=== PATIENT | male | born 1935 | race Caucasian/White ===

== ENCOUNTER 2017-03-10 21:23 | Observation (INO) | payer MEDICARE, OTHER ==
[~2017-03-10] VITALS: Ht 181.6 cm; Wt 70.3 kg
[~2017-03-10 21:23] MED LIST: ALPH600C3 PO; ASCO100089 PO; ASPI-973 PO; ATRV10T PO; CHOL500011 PO; CLOP75TA28 PO; KLO5T PO; NORT10CA PO; OMEG500C3 PO; RABE20TA27 PO; RANI300T4 PO; TERA10CA5 PO
--- NOTE | 2017-03-10 21:53 | ED.REPORT ---
HPI-Stroke / CVA Mar 10, 2017 ED Provider: Gustavo Humphreys MD Pt is a 81 year old male with a history of chronic idiopathic neuropathy and pacemaker insertion who presents to the ED complaining of numbness onset 20:10. The numbness lasted 15 minutes, and the pt reports that he is now asymptomatic. He denies speech-related symptoms, facial drooping, and numbness in his legs. The pt reports that he initially felt numbness on the left side of his face, which radiated to his left hand and forearm. He denies taking blood thinners. Nursing Notes Stated Complaint: NUMBNESS IN FACE/ARM Chief Complaint: Numbness Nursing Notes Reviewed: Yes ([place], ideasoft not reconciled) Allergies: Coded Allergies: Sulfa (Sulfonamide Antibiotics) (Verified Adverse Reaction, Intermediate, 08/15/15) Irritable Scheduled Ascorbic Acid (Vitamin C) 1,000 Mg Tab.chew 1,000 MG PO DAILY (Reported) Aspirin (Aspirin) 81 Mg Tablet 81 MG PO DAILY (Reported) Atorvastatin (Lipitor) 10 Mg Tab 10 MG PO DAILY (Reported) Clopidogrel (Clopidogrel) 75 Mg Tablet 75 MG PO DAILY (Reported) Nortriptyline (Nortriptyline) 10 Mg Capsule 10 MG PO HS (Reported) Ranitidine (Ranitidine) 300 Mg Tablet 300 MG PO DAILY (Reported) Terazosin (Terazosin) 10 Mg Capsule 10 MG PO HS (Reported) Scheduled PRN Clonazepam (Clonazepam) 0.5 Mg Tab 0 PO BID PRN PRN For Anxiety (Reported) Miscellaneous Medications Alpha Lipoic Acid (Alpha Lipoic Acid) 600 Mg Capsule 600 MG PO (Reported) Cholecalciferol (Vitamin D3) (Vitamin D3) 5,000 Unit Tablet 5,000 UNIT PO ( Reported) [place]-3 Fatty Acids (Fish Oil) 500 Mg Capsule 500 MG PO (Reported) Rabeprazole DR (Rabeprazole DR) 20 Mg Tablet.dr 0 PO (Reported) General Time Seen by Provider: 21:23 Chief Complaint Numbness Hx Obtained From: Patient, EMS Arrived By: Ambulance Time last known well 20:00 Sudden in Onset?: Yes Symptom Duration: 1 - 15 minutes (15 min) Progression Since Onset: Rapidly improving Severity: Current: No pain currently Severity: Maximum: No pain Recent Healthcare: No recent doctor visit, No recent hospitalization Similar Sx Previous: No Risk Factors NIH Stroke Scale Level of Consciousness: Alert and responsive (0) Ask Month & Age: Both questions right (0) Open/Close Eyes/Hand Finance Mgr: Performs both tasks (0) Horizontal EO Movements: None (0) Visual Cano: No visual loss (0) Facial Palsy: Normal symmetry (0) Right Arm Motor Drift (10s): No drift 10 sec (0) Left Arm Motor Drift (10s): No drift 10 sec (0) Right Leg Motor Drift (5s): No drift 5 sec (0) Left Leg Motor Drift (5s): No drift 5 sec (0) (Chronic neuropathy and both feet are in braces) Limb Ataxia FNF/Heel-Araujo: No ataxia (0) Sensation (Arms/Legs/Face): No sensory loss (0) Language Aphasia: No aphasia, normal (0) Dysarthria: No dysarthria, normal (0) Extinction/Inattention: No exctinct/inattent (0) NIHSS Score: 0 Time NIHSS Performed: 21:33 Date NIHSS Performed: Mar 10, 2017 Past Medical History Past Medical History Chronic idiopathic neuropathy Sleep apnea Past Surgical History Pacemaker for bradycardia Family History Denies history of stroke Smoking History Never Smoker Social History Alcohol Use: "Social" Drug Use: Denies drug use Other Social History: Review of Systems Neurologic: Reports: Numbness, Denies: Focal weakness, Slurred speech, Unable to speak Complete sys rev & neg: except as marked. Physical Exam Initial Vital Signs Vital Signs (First) Date Time Temp Pulse Resp B/P Pulse Ox O2 Delivery O2 Flow Rate FiO2 03/10/17 21:59 36.7 69 18 140/64 98 Room Air Initial VS: Reviewed, Unavailable (none on chart, ordered) Abdomen / GI: Soft Extremities: Vascular intact, Neuro intact Skin: Warm, Dry, No cyanosis Psychiatric: Mood/affect normal, Behavior normal General/Constitutional: Awake, Alert, Cooperative Head / Eyes: Atraumatic, Normocephalic Neck: Atraumatic, Full range of motion Respiratory / Chest: Atraumatic, Breath sounds NL, Breath sounds = bilat Cardiovascular: Heart rate NL, Regular rhythm, Heart sounds NL Neurologic: Oriented X3, Speech NL, No motor deficits, No sensory deficits Chronic neuropathy and both feet are in braces. Interpretation & Diagnostics Lab Results Interpretation Result Diagram: 03/10/17215403/10/172154 Test 03/10/17 21:55 White Blood Count 6.8th/mm3 (3.8-10.1) Red Blood Count 5.42mil/mm3 (4.40-5.80) Hemoglobin 15.3g/dL (13.8-17.2) Hematocrit 44.8% (41.0-50.0) Mean Corpuscular Volume 82.7fL (81-100) Mean Corpuscular Hemoglobin 28.2pg (27.0-35.0) Mean Corpuscular Hemoglobin Concent 34.2% (32.0-37.0) Red Cell Distribution Width 13.3% (12.3-15.4) Platelet Count 196bil/L (150-400) Neutrophils (%) (Auto) 45.6% (40-74) Lymphocytes (%) (Auto) 42.1% (14-46) Monocytes (%) (Auto) 8.8% (4-12) Eosinophils (%) (Auto) 2.8% (0-5) Basophils (%) (Auto) 0.6% (0-3) Sodium Level 135mEq/L (134-144) Potassium Level 4.0mEq/L (3.5-5.2) Chloride Level 97mEq/L (97-108) Carbon Dioxide Level 23mmol/L (18-29) Blood Urea Nitrogen 16mg/dL (8-27) Creatinine 1.05mg/dL (0.76-1.27) Estimat Glomerular Filtration Rate 72mL/min (>59) Glucose Level 107mg/dL (60-99) Calcium Level 9.7mg/dL (8.5-10.1) Total Bilirubin 0.3mg/dL (0.0-1.2) Aspartate Amino Transf (AST/SGOT) 29U/L (0-50) Alanine Aminotransferase (ALT/SGPT) 27U/L (0-44) Alkaline Phosphatase 59U/L (25-160) Total Protein 6.7g/dL (6.4-8.4) Albumin 4.2g/dL (3.4-5.0) Hold Whitten Top Tube Received (Received) Lab Results Interpretation: CBC normal CMP normal ECG Interpretation ECG Interpretation: Atrial-ventricular dual-paced complexes Time: 20:26 Interpreted by: ED physician X-Ray Chest Interpretation Chest Xray Interpretation: IMPRESSION: 1. No acute cardiopulmonary disease. Dictated by: Ned Culver M.D. on 03/10/2017 at 22:06 View: Portable, 1 view Interpretation / Wet Read by: Interpret - Radiologist CT Head Interpretation Radiologist called and indicated that the study was negative. Interpretation / Wet Read by: Interpret - Radiologist, Discussed w radiologist Re-Eval/Medical Decision Med Decision/Clinical Course This is a 81-year-old male with a pacemaker who presents to sense with TIA symptoms of approximately 15-20 minutes a left facial numbness and left arm numbness that subsequently resolved. Lower extremity neuropathy, but has no additional complaints. He has no prior history of stroke or TIA. He is not on aspirin or anticoagulants. Nonsmoker. No major risk factors. Present as a code stroke, but his NIH stroke scale is 0. Noncontrast CT is negative. He is in a paced rhythm. Labs are normal. I do not appreciate carotid bruits. Given his symptoms have resolved entirely and presents today, is able to eat. He was started on aspirin. He does not have a PCP. At this stage I do think the patient merits admission for TIA workup, with carotid ultrasound and echocardiogram given his pacemaker status. Source of Hx: Old records Re-Evaluation/Progress : Time of Eval: 22:34 )( Re-Eval Neurologic Exam: Alert, Oriented X3 Re-Evaluation/Progress Note: Pt rechecked. Informed pt of results and plan for admission. Pt understands and agrees with plan for admission. All questions were addressed. Consultation #1: Referral / Consult Name: Roseline Boo MD Consulted With: Hospitalist Call Returned at: 23:23 Second Watch Sergeant: Will see patient, Agrees with eval, Agrees with plan, Accepts admit Consultation #2: Call Returned at: 21:30 Note: Consult with radiologist. Discussed CT scan results. Consultation #3: Call Returned at: 23:31 Note: Consult with radiologist. Inquired about CT scan print out, but it could not be located. Differential Diagnosis: Positive: Transient ischemic attack, Negative: Atrial fibrillation, Cerebellar hemorrhage, Electrolyte disorder, Hepatic encephalopathy, Intoxication, alcohol, Intoxication, other drug, Post- ictal, Psychiatric illness, Sepsis, Subarachnoid hemorrhage, Subdural hemorrhage Counseled Regarding: Diagnosis, Lab results, Need for admission Patient Discharge & Departure Impression: Primary Impression: Transient ischemic attack Transient cerebral ischemia type: unspecified Qualified Code: G45.9 - Transient cerebral ischemic attack, unspecified Disposition: ADMITTED TO HOSPITAL Discharge Condition All VS Reviewed: Yes Condition: Stable Referrals: [facility] Scribe Attestation Portions of this note were transcribed by Chayito Carbajal. I, Dr. Humphreys personally performed the history, physical exam and medical decision-making; I reviewed and confirmed the accuracy of the information in the transcribed note. Signed by: Juma Escalera, 03/10/17 and 23:50. copies to: [facility] Gustavo Humphreys MD Mar 10, 2017 21:53 Chayito Knott Mar 10, 2017 22:00
[2017-03-10 21:59] VITALS: BP 140/64; PULSE 69; RESP 18; O2SAT 98
[2017-03-10 22:06] LABS: Platelet Count 196 bil/L (150-400)
[2017-03-10 22:09] LABS: BASOPHILS % (AUTO) 0.6 % (0-3); EOSINOPHILS % (AUTO) 2.8 % (0-5); MONOCYTES % (AUTO) 8.8 % (4-12); Mean Corpuscular Hemoglobin 28.2 pg (27.0-35.0); Mean Corpuscular Volume 82.7 fL (81-100); NEUTROPHILS % (AUTO) 45.6 % (40-74)
--- NOTE | 2017-03-10 22:10 | DRSVH ---
PROCEDURE: X-RAY CHEST ONE VIEW, PORTABLE ([id number]) INDICATIONS: CVA TECHNIQUE: One view of the chest was acquired. COMPARISON: [facility], , CHEST 1VW (PORTABLE), 05/11/2013, 8:03. FINDINGS: Surgical changes and devices: Left chest wall pacemaker appears stable in position. Lungs and pleura: No pleural effusions or pneumothorax. Visualized lungs are clear. Mediastinum: Mediastinal contours appear normal. Heart size is normal. Bones and chest wall: No suspicious bony lesions. Overlying soft tissues appear unremarkable. IMPRESSION: 1. No acute cardiopulmonary disease. Dictated by: Ned Culver M.D. on 03/10/2017 at 22:06 Approved by: Ned Culver M.D. on 03/10/2017 at 22:08
[2017-03-10] MEDS ORDERED: Alum-Mag Hydrox-Simeth 30 mL Suspension PO PRN ×2 (23:30→23:45)
[2017-03-10] MEDS ORDERED: Ondansetron 2 mg/mL 2 mL Inj IVPUSH PRN ×2 (23:30→23:45)
[2017-03-10] MEDS ORDERED: Polyethylene Glycol (PEG) 17 Gm Powder PO PRN (23:45)
--- NOTE | 2017-03-10 23:58 | PCM.HPMED ---
Subjective Date of Service Mar 10, 2017 Primary Provider: Admitting Physician: Primary Care Physician: Yao Attending Physician: Admit Status: From the Emergency Department, 23-Hour Observation, Remote Telemetry Chief Complaint: Left face and arm numbness History of Present Illness: This 81-year-old male who is a history of chronic idiopathic neuropathy and a pacemaker placed a few years ago for bradycardia. He noted acute onset about 7 PM of left facial numbness and then left hand and forearm numbness lasted total of 15 minutes. He has had no prior episodes similar to this he has had no history of TIAs or strokes. He does not take aspirin. His evaluation in the emergency room had a CT of head without contrast which did not show any acute abnormalities per ER M.D. EKG showed atrial ventricular dual paced complexes at a rate of 70. He currently does not have a primary care provider. Review of Systems: Denies any chest pain or shortness of breath. Denies of fast or irregular heartbeats. Denies any nausea vomiting. All other review of systems are reviewed and are negative except for as in history of present illness. He does have a history of BPH and is on a medication for it but cannot recall the name. Allergies Coded Allergies: Sulfa (Sulfonamide Antibiotics) (Verified Adverse Reaction, Intermediate, 08/15/15) Irritable PMH History of chronic idiopathic lower extremity neuropathy Pacemaker for bradycardia History of BPH Family History Mother at the age of 41 with a history of scleroderma Social History Hx Alcohol Use: No Hx Substance Use: No Hx Tobacco Use: No Smoking Status: Never Smoker Living Arrangement: with Family Exam Vital Signs Vital Sign - Last Date Time Temp Pulse Resp B/P Pulse Ox O2 Delivery O2 Flow Rate FiO2 03/10/17 21:59 36.7 69 18 140/64 98 Room Air Exam Occupational: Elderly male in no acute distress Head: Normocephalic atraumatic Eyes: PERRLA DC EOMI Mouth: No lesions Neck: No adenopathy carotids 2+ over 4 without bruits Chest: Clear to auscultation Cor: Regular rate and rhythm S1-S2 without murmur Abdomen: Soft nontender bowel sounds present Extremities: No pedal edema he does have bilateral splints in place lower extremities Neuro: Alert and oriented 3, motor strength is intact bilaterally except for changes from his lower extremity peripheral neuropathy Lab and Diagnostics Labs Laboratory Tests 72 Hours Test 03/10/17 21:55 03/10/17 23:47 White Blood Count 6.8th/mm3 (3.8-10.1) Red Blood Count 5.42mil/mm3 (4.40-5.80) Hemoglobin 15.3g/dL (13.8-17.2) Hematocrit 44.8% (41.0-50.0) Mean Corpuscular Volume 82.7fL (81-100) Mean Corpuscular Hemoglobin 28.2pg (27.0-35.0) Mean Corpuscular Hemoglobin Concent 34.2% (32.0-37.0) Red Cell Distribution Width 13.3% (12.3-15.4) Platelet Count 196bil/L (150-400) Neutrophils (%) (Auto) 45.6% (40-74) Lymphocytes (%) (Auto) 42.1% (14-46) Monocytes (%) (Auto) 8.8% (4-12) Eosinophils (%) (Auto) 2.8% (0-5) Basophils (%) (Auto) 0.6% (0-3) Sodium Level 135mEq/L (134-144) Potassium Level 4.0mEq/L (3.5-5.2) Chloride Level 97mEq/L (97-108) Carbon Dioxide Level 23mmol/L (18-29) Blood Urea Nitrogen 16mg/dL (8-27) Creatinine 1.05mg/dL (0.76-1.27) Estimat Glomerular Filtration Rate 72mL/min (>59) Glucose Level 107mg/dL (60-99) Calcium Level 9.7mg/dL (8.5-10.1) Total Bilirubin 0.3mg/dL (0.0-1.2) Aspartate Amino Transf (AST/SGOT) 29U/L (0-50) Alanine Aminotransferase (ALT/SGPT) 27U/L (0-44) Alkaline Phosphatase 59U/L (25-160) Total Protein 6.7g/dL (6.4-8.4) Albumin 4.2g/dL (3.4-5.0) Hold Whitten Top Tube Received (Received) Result Diagram: 03/10/17215403/10/172154 Assessment & Plan # TIA, acute, present on admission -Symptoms have currently resolved -Placed on telemetry, check echocardiogram in a.m. -Check CT angiogram of head and neck and a.m. -Initiate atorvastatin and ASA daily -Check fasting lipid panel #Chronic idiopathic neuropathy, present on admission Continue home medication regimen which includes gabapentin and nortriptyline #BPH, chronic, present on admission We will need to find out what medication he is on for his BPH #DVT prophylaxis -Placed on subcutaneous prophylactic Lovenox # CODE STATUS Patient is full code VTE Prophylaxis Indicated: Meets Criteria for Anticoag Therapy VTE Prophylaxis: Sub-Q Enoxaparin, SCDs Resuscitation Status: CPR: Attempt Resuscitation Time spent 60 minutes Roseline Boo MD Mar 10, 2017 23:58
[2017-03-11] VITALS (8 sets, daily range): BP systolic 144–161; BP diastolic 58–81; PULSE 59–68; RESP 14–18; O2SAT 96–99
[2017-03-11 00:20] LABS: APPEARANCE,URINE CLEAR (CLEAR,HAZY); COLOR,URINE YELLOW (YELLOW)
[2017-03-11 00:21] LABS: OCCULT BLOOD,URINE NEGATIVE (NEGATIVE); UROBILINOGEN,URINE NORMAL (NORMAL)
--- NOTE | 2017-03-11 00:31 | NUR ---
ADMIT Pt arrived at 0025, via gurney. Walked self to bed. No neurological deficits noted. Report received from Tabitha Bryan in ED
[2017-03-11] MEDS ORDERED: OMEG500C PO (01:01)
[2017-03-11] MEDS ORDERED: ASCO500S2 PO (01:02)
--- NOTE | 2017-03-11 04:20 | NUR ---
MED REC/ADVANCED DIRECTIVES/CPAP Pt poor historian with medications. Says he takes 3 prescribed medications, only one was on EMAR history. Pt said he took one for BPH, but does not think it is Flomax. Unsure of other medication. Pt has advanced directives, but no copies with him. Pt has cpap, but no access to it right now. Pt instructed to speak with Twyla to bring in medication list, advanced directives, and cpap machine.
--- NOTE | 2017-03-11 09:39 | NUR ---
Evaluation completed. Please go to "Notes" then click on "Assessments and Notes" (bottom left corner of screen). Then select appropriate discipline tab on top of screen.
--- NOTE | 2017-03-11 10:54 | NUR ---
Case Management: DONNY given and explained to pt. Jacinda JOHNSONRN
--- NOTE | 2017-03-11 14:09 | NUR ---
Evaluation completed. Please go to "Notes" then click on "Assessments and Notes" (bottom left corner of screen). Then select appropriate discipline tab on top of screen.
[2017-03-11] MEDS ORDERED: GABA-500 PO (14:19)
[2017-03-11] MEDS ORDERED: OXYB5TAB10 PO (14:19)
--- NOTE | 2017-03-11 14:44 | DRSVH ---
[facility] [address] [place] [address] Echocardiogram Report Name: LYNNETTE FLAHERTY Date : 03/11/2017 Height: 72 in Hospital Exam Location: [facility] Weight: 155 lb Gender: Male BSA: 1.9 m2 : 1935 Age: 81 yrs BP: 154/78 mmHg Reason For Study: TIA Ordering Physician: Performed By: Erick Suárez Interpretation Summary There is normal left ventricular wall thickness. There is apical severe hypokinesis. Left ventricular ejection fraction is estimated to be 40 +/- 5%. There is mild aortic valve sclerosis. There is mild aortic regurgitation. The right ventricular systolic pressure is estimated at 22 mmHg assuming a right atrial pressure of 3 mm Hg. Compared to the prior exam, left ventricular function is moderately decreased. Procedure: A two-dimensional transthoracic echocardiogram with color flow and Doppler was performed. The study quality was technically good. Comparison is made with the echocardiogram of 04/24/14. The suprasternal notch views were difficult to obtain and are suboptimal in quality. The patient has a paced rhythm. Left Ventricle: The left ventricle is normal in size. There is normal left ventricular wall thickness. Left ventricular ejection fraction is estimated to be 40 +/- 5%. Compared to the prior exam, left ventricular function is moderately decreased. There is apical severe hypokinesis. Right Ventricle: The right ventricle is normal in size and function. There is a pacemaker lead in the right ventricle. Atria: Both atria are normal in size. The interatrial septum is intact with no evidence for an atrial septal defect. Mitral Valve: The mitral valve is normal in structure and function. There is trace mitral regurgitation. Aortic Valve: The aortic valve is trileaflet. The aortic valve opens well. There is mild aortic valve sclerosis. There is mild aortic regurgitation. Tricuspid Valve: The tricuspid valve is normal in structure and function. There is trace tricuspid regurgitation. The right ventricular systolic pressure is estimated at 22 mmHg assuming a right atrial pressure of 3 mm Hg. Pulmonic Valve: The pulmonic valve is normal in structure and function. There is no pulmonic valvular regurgitation. Great Vessels: The aortic root is normal size. The ascending aorta is mildly enlarged. The pulmonary artery is normal size. Pericardium/ Pleura There is no pericardial effusion. There is no pleural effusion. MMode/2D Measurements & Calculations LVIDd: 4.7 cm LA dimension: 3.5 cm RA long axis: 4.4 cm Ao root diam LVIDs: 3.1 cm FS: 34.3 % LA A2 area: 18.8 cm RA area: 15.3 cm Aortic Jxn EPSS: 1.4 cm LA A4 area: 14.9 cm RA vol: 45.3 ml IVSd: 0.92 cm LA length (vol): 4.8 cm RA : 23.7 ml/m2 asc Aorta LVPWd: 0.90 cm LA vol: 49.4 ml Diam: 3.6 cm LA vol index: 25.9 ml/m IVC diam: 1.5 cm EDV(MOD-sp2) LV shearer. diameter/BSA LV sys. diameter/BSA (cm/m^2): 2.5 (cm/m^2): 1.6 ESV(MOD-sp2) EF(MOD-sp2) Doppler Measurements & Calculations Ao V2 max MV E max chuck MV E/A: 0.63 TR max chuck : 112.6 cm/sec : 57.5 cm/sec Med Peak E' Chuck : 218.4 cm/sec Ao max PG MV A max chuck TR max PG : 5.1 mmHg : 90.7 cm/sec E/E' med: 12.7 : 19.1 mmHg Ao mean PG Lat Peak E' Chuck PA V2 max : 2.8 mmHg : 86.7 cm/sec E/E' lat: 11.9 PA mean PG E/e' average: 12.3 PA Accel Time : 0.13 sec MV dec time Ao V2 mean PA V2 mean : 0.24 sec : 79.5 cm/sec : 63.0 cm/sec Ao V2 VTI: 24.7 cm PA pr(Accel) : 11.6 mmHg Electronically signed by: Mike Olsen on Reading Physician:03/11/2017 02:43 PM
--- NOTE | 2017-03-11 15:01 | DRSVH ---
PROCEDURE: CT ANGIO HEAD AND NECK (P) INDICATIONS: tia TECHNIQUE: Pre-contrast 4.5 mm thick sections acquired from the foramen magnum to the vertex. After the adminis tration of intravenous contrast, 1 mm thick sections acquired from the aortic arch through the [place] of Vides. Post-contrast 4.5 mm thick sections then re-acquired from the foramen magnum to the vert ex. 3-dimensional lkldfzv-wpcyijllw-dgsmkgwivn (MIP) and/or volume rendering reformats were acquired of the central intracranial vasculature and neck separately. For radiation dose reduction, the foll owing was used: automated exposure control, adjustment of mA and/or kV according to patient size. COMPARISON: [facility], CT, BRAIN (TPA), 03/10/2017, 21:45. FINDINGS: Image quality: Excellent. BRAIN: CSF spaces: Ventricles are normal in size and shape. Basal cisterns are patent. No extra-axial flu id collections. Brain: No midline shift. No intracranial bleeds or masses. Nash-white matter interface appears int act. Skull and face: Calvarium and facial bones appear intact, without suspicious lesions. Orbits appear normal. Sinuses: Sinuses and mastoids are clear. HEAD CT ANGIOGRAPHY: Anterior circulation: Intracranial internal carotid arteries are normal in size and flow. The flow within the paired anterior cerebral arteries is normal and symmetric. The flow within the middle cer ebral arteries is normal and symmetric. The anterior communicating artery is seen. No aneurysms are seen. Posterior circulation: Visualized portions of the vertebral arteries demonstrate asymmetric caliber, right vertebral dominant, and join to form a normal appearing basilar artery. Flow within the poste rior cerebral arteries is normal and symmetric. No aneurysms are seen. NECK CT ANGIOGRAPHY: Carotid system: The great vessels demonstrate a conventional anatomy as they arise from the aortic a rch. The origins of the common carotid arteries appear patent. The common carotid arteries demonstr ate normal caliber and courses. The bifurcation regions are both widely patent. The internal caroti d arteries demonstrate normal calibers and courses. Posterior circulation: The origins of the vertebral arteries both appear widely patent. The more martin perior extracranial portions of both vertebral arteries also demonstrate normal courses and asymmetri c right vertebral dominant calibers. They join to form a normal appearing basilar artery. There is an estimated 50-60% stenosis of the superior margin of the right vertebral artery at the level of the high cervical course of the posterior circulation. Soft tissues: Visualized neck soft tissues demonstrate no suspicious abnormalities. Bones: No suspicious bony lesions. Visualized cervical spine appears normally aligned. IMPRESSION: No aneurysm or stenosis found, no embolic disease identified. Normal anatomic variant as ymmetric dominant right vertebral artery. 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 Dictated by: Wallace Barragan M.D. on 03/11/2017 at 14:32 Approved by: Wallace Barragan M.D. on 03/11/2017 at 14:59
[2017-03-11 17:15] LABS: Creatine Kinase 206 U/L (21-232)
[2017-03-11 17:17] LABS: TROPONIN T < 0.010 ug/L (0.0-0.011)
[2017-03-11] MEDS ORDERED: ASPI325T32 PO (17:29)
[2017-03-11] MEDS ORDERED: ATOR10TA66 PO (17:29)
--- NOTE | 2017-03-11 17:37 | PCM.DIMED ---
Discharge Instructions Date of Service Mar 11, 2017 Dates of Hospitalization Mar 10, 2017 at 23:57 Discharge Diagnosis Discharge Diagnosis # Acute transient neurologic symptoms possibly due to acute transient ischemic attack (TIA), present on admission. Resolved. # Chronic idiopathic neuropathy, present on admission # BPH, chronic, present on admission. Stable. Diet Discharge Diet: Low fat, Low Sodium, Heart Healthy Activity Discharge Activity: No restrictions Call your provider Call your provider for: Fever or Chills, Shortness of breath, Bleeding, Chest pain, Weakness (unilateral) Patient Instructions Patient Instructions Seek immediate medical attention if any new or worsening signs or symptoms occur. Follow-up plan 1. Followup with primary care provider within one week to address this hospitalization as well as the echocardiogram findings. Timo Herrera Mar 11, 2017 17:37
--- NOTE | 2017-03-11 17:56 | NUR ---
Discharge Pt discharged home with and family via private vehicle, pt walked out. Pt verbalized understanding of discharge, new Rx, and follow up instructions, all personal belongings accounted for and left with pt.
--- NOTE | 2017-03-11 18:11 | PCM.DC.MED ---
Discharge Summary Date of Service Mar 11, 2017 Dates of Hospitalization Date of Hospital Admission Mar 10, 2017 at 23:57 Date of Discharge: Mar 11, 2017 Providers: Admitting Physician: Roseline Boo MD Primary Care Physician: Yao Attending Physician: Timo Poon Diagnosis at Time of Discharge Diagnosis at Time of Discharge # Acute transient neurologic symptoms possibly due to acute transient ischemic attack (TIA), present on admission. Resolved. # Chronic idiopathic neuropathy, present on admission # BPH, chronic, present on admission. Stable. Procedures XRay, CTs & MRIs Date of Service: 03/10/172137 PROCEDURE: X-RAY CHEST ONE VIEW, PORTABLE ([id number]) IMPRESSION: 1. No acute cardiopulmonary disease. Dictated by: Ned Culver M.D. on 03/10/2017 at 22:06 Approved by: Ned Culver M.D. on 03/10/2017 at 22:08 Date of Service: 03/11/17 0800 PROCEDURE: CT ANGIO HEAD AND NECK (P) IMPRESSION: No aneurysm or stenosis found, no embolic disease identified. Normal anatomic variant asymmetric dominant right vertebral artery. 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 Dictated by: Wallace Barragan M.D. on 03/11/2017 at 14:32 Approved by: Wallace Barragan M.D. on 03/11/2017 at 14:59 Cardiac Echo Impression Date of Service: 03/11/17 0800 Echocardiogram Report Interpretation Summary There is normal left ventricular wall thickness. There is apical severe hypokinesis. Left ventricular ejection fraction is estimated to be 40 +/- 5%. There is mild aortic valve sclerosis. There is mild aortic regurgitation. The right ventricular systolic pressure is estimated at 22 mmHg assuming a right atrial pressure of 3 mm Hg. Compared to the prior exam, left ventricular function is moderately decreased. Electronically signed by: Mike Olsen on Reading Physician:03/11/2017 02:43 PM Brief History As noted in H&P by Dr. 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 He noted acute onset about 7 PM of left facial numbness and then left hand and forearm numbness lasted total of 15 minutes. He has had no prior episodes similar to this he has had no history of TIAs or strokes. He does not take aspirin. His evaluation in the emergency room had a CT of head without contrast which did not show any acute abnormalities per ER M.D. EKG showed atrial ventricular dual paced complexes at a rate of 70. He currently does not have a primary care provider. Hospital Course # TIA, acute, present on admission -Symptoms resolved on admission and patient remained asymptomatic during this hospitalization -Imaging studies as noted above -Initiated atorvastatin and ASA daily during this hospital -Echo showing some worsening of old wall motion abnormality but Trop negative and no reported CP. Will defer further followup to outpatient by PCP #Chronic idiopathic neuropathy, present on admission Continued home medication regimen which included gabapentin and nortriptyline #BPH, chronic, present on admission. Stable Exam Vital Signs (Last) Date Time Temp Pulse Resp B/P Pulse Ox O2 Delivery O2 Flow Rate FiO2 03/11/17 16:47 36.4 59 18 161/77 98 Room Air Exam Awake, Alert, O x 3 CN II-XII grossly intact CV: RRR Test 03/10/17 21:55 03/10/17 23:47 03/11/17 16:27 White Blood Count 6.8th/mm3 (3.8-10.1) Red Blood Count 5.42mil/mm3 (4.40-5.80) Hemoglobin 15.3g/dL (13.8-17.2) Hematocrit 44.8% (41.0-50.0) Mean Corpuscular Volume 82.7fL (81-100) Mean Corpuscular Hemoglobin 28.2pg (27.0-35.0) Mean Corpuscular Hemoglobin Concent 34.2% (32.0-37.0) Red Cell Distribution Width 13.3% (12.3-15.4) Platelet Count 196bil/L (150-400) Neutrophils (%) (Auto) 45.6% (40-74) Lymphocytes (%) (Auto) 42.1% (14-46) Monocytes (%) (Auto) 8.8% (4-12) Eosinophils (%) (Auto) 2.8% (0-5) Basophils (%) (Auto) 0.6% (0-3) Sodium Level 135mEq/L (134-144) Potassium Level 4.0mEq/L (3.5-5.2) Chloride Level 97mEq/L (97-108) Carbon Dioxide Level 23mmol/L (18-29) Blood Urea Nitrogen 16mg/dL (8-27) Creatinine 1.05mg/dL (0.76-1.27) Estimat Glomerular Filtration Rate 72mL/min (>59) Glucose Level 107mg/dL (60-99) Calcium Level 9.7mg/dL (8.5-10.1) Total Bilirubin 0.3mg/dL (0.0-1.2) Aspartate Amino Transf (AST/SGOT) 29U/L (0-50) Alanine Aminotransferase (ALT/SGPT) 27U/L (0-44) Alkaline Phosphatase 59U/L (25-160) Total Protein 6.7g/dL (6.4-8.4) Albumin 4.2g/dL (3.4-5.0) Triglycerides Level 105mg/dL (0-149) Cholesterol Level 182mg/dL (100-199) LDL Cholesterol, Calculated 82.000mg/dL (0-99) VLDL Cholesterol 21.000mg/dL HDL Cholesterol 79mg/dL (>39) Cholesterol/HDL Ratio 2.30 (0.0-4.4) Hold Whitten Top Tube Received (Received) Urine Color Yellow (YELLOW) Urine Appearance Clear (CLEAR,HAZY) Urine pH 7.0 (5.0-8.0) Urine Specific [place] <1.005 (1.003-1.035) Urine Protein Negativemg/dL (NEG,TRACE) Urine Glucose (UA) Negativemg/dL (NEGATIVE) Urine Ketones Negativemg/dL (NEGATIVE) Urine Occult Blood Negative (NEGATIVE) Urine Nitrite Negative (NEGATIVE) Urine Bilirubin Negative (NEGATIVE) Urine Urobilinogen Normalmg/dL (NORMAL) Urine Leukocyte Esterase Negative (NEGATIVE) Urine RBC 0-2/hpf (0-2) Urine WBC 0-5/hpf (0-5) Urine Epithelial Cells Few/hpf (NONE-MOD) Urine Crystals None seen (NONE SEEN) Urine Bacteria Few/hpf (NONE-FEW) Urine Hyaline Casts None/lpf (NONE) Urine Granular Casts None seen (NONE SEEN) Urine Waxy Casts None seen (NONE SEEN) Urine Red Blood Cell Casts None seen (NONE SEEN) Urine White Blood Cell Casts None seen (NONE SEEN) Urine Mucus None seen (None Seen) Urine Trichomonas None seen (NONE SEEN) Urine Yeast None (NONE SEEN) Urinalysis Comment None Urine Culture Reflexed Not indicated Total Creatine Kinase 206U/L (21-232) Creatine Kinase MB 5.5ng/mL (0.0-10.4) Creatine Kinase MB % % (0.0-5.0) Troponin T < 0.010ug/L (0.0-0.011) Discharge Medications Discharge Medications Ascorbic Acid (Vitamin C) 500 Mg/5 Ml Syrup 1,000 MG PO QAM (Reported) Aspirin (Aspirin) 325 Mg Tablet 325 MG PO DAILY Prescribed by: TIMO POON MD Atorvastatin Calcium (Atorvastatin Calcium) 10 Mg Tablet 10 MG PO HS Prescribed by: TIMO POON MD Gabapentin (Gabapentin) 100 Mg Capsule 200 MG PO DAILY (Reported) Nortriptyline (Nortriptyline) 10 Mg Capsule 10 MG PO HS (Reported) [place]-3 Fatty Acids (Fish Oil) 500 Mg Capsule.dr 500 MG PO QAM (Reported) Oxybutynin Chloride (Oxybutynin Chloride) 5 Mg Tablet 5 MG PO DAILY (Reported) Miscellaneous Medications Cholecalciferol (Vitamin D3) (Vitamin D3) 5,000 Unit Tablet 5,000 UNIT PO ( Reported) Followup Plan Disposition: Home Follow-up plan 1. Followup with primary care provider within one week to address this hospitalization as well as the echocardiogram findings. Discharge Diet: Low fat, Low Sodium, Heart Healthy Discharge Activity: No restrictions Patient Instructions Seek immediate medical attention if any new or worsening signs or symptoms occur. Time spent 30 min Timo Poon Mar 11, 2017 18:11
== END 2017-03-11 17:56 | disposition home or self-care (01) ==
LOC: SED 21:23 → MPC 23:57
PROVIDERS: ADMIT Specialist; ATTEND Specialist
DX: G45.9 Transient cerebral ischemic attack, unspecified (principal); G60.9 Hereditary and idiopathic neuropathy, unspecified; N40.0 Benign prostatic hyperplasia without lower urinary tract symptoms; R00.1 Bradycardia, unspecified; R20.0 Anesthesia of skin; G47.33 Obstructive sleep apnea (adult) (pediatric); Z88.2 Allergy status to sulfonamides; Z79.82 Long term (current) use of aspirin; Z95.0 Presence of cardiac pacemaker
CPT/HCPCS: 36415; 70450; 70496; 70498; 71010; 80053; 80061; 81000; 82550; 82553; 83036; 84484; 85025; 92610; 93005; 97161; 99285; C8929; G0378; G8978; G8979; G8980; G8996; G8997; G8998; J1650; Q9967

== ENCOUNTER → 2017-05-17 | Day surgery (SDC) | payer MEDICARE, OTHER ==
[~2017-05-17] VITALS: Ht 180.3 cm; Wt 70.0 kg
[~2017-05-17] MED LIST changes: -ASCO100089 PO; +ASCO500S2 PO; +ATOR10TA66 PO; -ATRV10T PO; -CLOP75TA28 PO; +GABA-500 PO; -KLO5T PO; +MULT-1018 PO; +NITR0.4T38 SL; +OMEG500C PO; -OMEG500C3 PO; +OXYB5TAB10 PO; -RABE20TA27 PO; -RANI300T4 PO; +Sodium Chloride LOK Flush 10 mL Syringe IV PRN; -TERA10CA5 PO; +UBID30CA20 PO; +fentaNYL-PF 50 mCg/mL 2 mL Inj IVPUSH PRN
[2017-05-17 13:54] VITALS: BP 147/71; PULSE 64; RESP 16; O2SAT 99
[2017-05-17] MEDS: 0.9% Sodium Chloride 1,000 ML IV PRN ×2 (14:42→15:12)
[2017-05-17 15:23] VITALS: BP 151/71; PULSE 61; RESP 16; O2SAT 100
[2017-05-17 15:33] VITALS: BP 142/65; PULSE 60; RESP 16; O2SAT 99
[2017-05-17 15:43] VITALS: BP 139/64; PULSE 60; RESP 16; O2SAT 99
--- NOTE | 2017-05-17 15:46 | ENDO ---
[address] [address] ENDOSCOPY PROCEDURE PATIENT: LYNNETTE FLAHERTY : 1935 MR#: [id number] ADMIT: 05/17/2017 JOB ID: [id number] DATE OF SERVICE: 05/17/2017 PRIMARY PROVIDER: Juan Carlos Lopez DO PROCEDURE: Colonoscopy with hot snare polypectomies. INDICATIONS: A 81-year-old male reporting for colon cancer screening. EQUIPMENT: [id number]-190DL SEDATION: 2 mg Versed, 50 mcg fentanyl. COMPLICATIONS: None identified. BOWEL PREPARATION: Suboptimal requiring copious amounts of irrigation and suction. There were some areas especially in the right colon that could not be fully easily cleansed for optimal mucosal examination. PROCEDURE INFORMATION: After the risks and benefits were explained, written and verbal informed consent was obtained. The patient was brought into the endoscopy suite and placed in the left lateral decubitus position. Sedation was achieved as above. Digital rectal examination accomplished. No significant pathology apart from some mild internal and external, nonbleeding, nonthrombosed hemorrhoids. The scope was introduced into the rectum and advanced to the cecum as identified by the appendiceal orifice and ileocecal valve. The scope was slowly withdrawn to carefully examine the mucosa for any defects or lesions. Multiple direct views were made through the dentate line for exclusion of pathology. The colon was decompressed. The scope removed from the patient who tolerated the procedure well. FINDINGS: There were three polyps seen and removed today with hot snare. The largest was perhaps 7 mm. The smallest perhaps 3-4 mm. Within the limitations of bowel prep, no other significant pathology appreciated. During the hot snare, a magnet was applied over the patient's pacemaker. ENDOSCOPIC DIAGNOSES: 1. Multiple colon polyps. 2. Hemorrhoids. RECOMMENDATIONS: 1. Await histopathology. 2. Considering bowel prep and the presence of polyps, I would recommend a repeat colonoscopy be performed in 18 months rather than three years.
[2017-05-17 15:53] VITALS: BP 134/75; PULSE 60; RESP 16; O2SAT 100
--- NOTE | 2017-05-19 16:02 | PATH ---
SURGICAL PATHOLOGY Attending Physician:Sebastian Hernandez CASE STATUS: Signed Out PATIENT NAME: LYNNETTE FLAHERTY PID: [id number] : 1935 DATE COLLECTED:05/17/2017 00:00 SPECIMEN: Colon, Polyp CLINICAL HISTORY: 1). COLON POLYPS FINAL DIAGNOSIS: Colon Polyps, Biopsies: Tubular adenoma x1. Colonic mucosa with features of inflammatory polyp x1. ICD10: D12.6 GROSS DESCRIPTION: The specimen is received in one formalin filled container labeled with the patient's name, sublabeled "colon polyps" and consists of 2 portions of tissue which aggregate to 0.2 x 0.2 x 0.2 CM. The specimen is entirely submitted in one cassette. 05/18/2017DC ICD-9 CODES: CPT CODES: 1: 26252 Electronically Signed Out Gustavo Kc MD, Ph.D. [facility] [address], [place] [address] Technical component performed at [facility], [address] [place] [address] Ave[address], [place], [address]
== END | disposition home or self-care (01) ==
LOC: END 00:30
PROVIDERS: ATTEND Internal Medicine Gastroenterology
DX: Z12.11 Encounter for screening for malignant neoplasm of colon (principal); D12.6 Benign neoplasm of colon, unspecified; K64.9 Unspecified hemorrhoids; I10 Essential (primary) hypertension; I25.10 Atherosclerotic heart disease of native coronary artery without angina pectoris; I45.10 Unspecified right bundle-branch block; I44.2 Atrioventricular block, complete; E78.5 Hyperlipidemia, unspecified; E03.9 Hypothyroidism, unspecified; G60.0 Hereditary motor and sensory neuropathy; N40.1 Benign prostatic hyperplasia with lower urinary tract symptoms; N13.8 Other obstructive and reflux uropathy; R39.14 Feeling of incomplete bladder emptying; G47.33 Obstructive sleep apnea (adult) (pediatric); G25.81 Restless legs syndrome; Z95.0 Presence of cardiac pacemaker; Z79.82 Long term (current) use of aspirin
CPT/HCPCS: 45385; 88305; 99153; G0500; J2250; J3010; J7030